=== PATIENT | male | born 1965 | race American Indian/Alaskan Native ===

== ENCOUNTER 2020-01-16 21:23 | Emergency (ER) | payer SELFPAY ==
[2020-01-16 21:31] VITALS: BP 145/92
[2020-01-16 22:06] LABS: Bilirubin,Urine NEG (Negative); Blood,Urine NEG (Negative); Color,Urine Amber (Yellow); Mucus,Urine FEW /HPF; Protein,Urine <15 mg/dL mg/dL (Negative)
[2020-01-16 23:22] LABS: BUN/Creatinine Ratio 7; Blood Urea Nitrogen 9 mg/dL (9-20); Calcium 9.2 mg/dL (8.4-10.2); Hemolysis Index 8
[2020-01-16 23:53] LABS: Basophils % (Auto) 0.2 % (0.0-1.8); Eosinophils % (Auto) 0.4 % (0.0-4.3); Hematocrit 41.5 % (35.5-45.6); Hemoglobin 14.3 gm/dl (11.8-15.2); Lymphocytes % (Auto) 19.6 % (13.4-35.0); Mean Corpuscular HGB Conc 35 % (32-34); Mean Corpuscular Volume 98 fl (84-94); Monocytes # (Auto) 1.2 K/mm3 (0.0-0.8); Monocytes % (Auto) 11.7 % (0.0-7.3); Platelet Count 170 K/mm3 (140-440); Red Blood Count 4.25 M/mm3 (3.65-5.03); Red Cell Distribution Width 13.2 % (13.2-15.2)
--- NOTE | 2020-01-17 01:43 | Emergency Department Report ---
ED Male [facility] - General Chief complaint: Fever Stated complaint: FEVER,CHILLS,FERNANDEZ IN URINE Source: patient Mode of arrival: Ambulatory Limitations: No Limitations - History of Present Illness Initial comments: 55-year-old -Russian male presents to the emergency room for dysuria x24 hours. Patient reports he has a history of HIV. Patient does not endorse that he has men on men sex. Patient admits to chills and feeling hot. Patient denies any abdominal pain no nausea no vomiting no testicular pain. MD Complaint: dysuria - Related Data Previous Rx's Medication Instructions Recorded Last Taken Type Ciprofloxacin HCl [Ciprofloxacin 500 mg PO Q12HR 7 Days #14 tab 01/17/20 Unknown Rx TAB] Phenazopyridine [Pyridium] 100 mg PO TID #9 tab 01/17/20 Unknown Rx Allergies Allergy/AdvReac Type Severity Reaction Status Date / Time No Known Allergies Allergy Unverified 01/16/20 21:42 ED Review of Systems ROS: Stated complaint: FEVER,CHILLS,FERNANDEZ IN URINE Other details as noted in HPI ED Past Medical Hx - Past Medical History Previous Medical History?: Yes Hx Hypertension: Yes Hx HIV: Yes - Surgical History Past Surgical History?: No - Social History Smoking Status: Never Smoker Substance Use Type: None - Medications Home Medications: Home Medications Medication Instructions Recorded Confirmed Last Taken Type Ciprofloxacin HCl [Ciprofloxacin 500 mg PO Q12HR 7 Days #14 tab 01/17/20 Unknown Rx TAB] Phenazopyridine [Pyridium] 100 mg PO TID #9 tab 01/17/20 Unknown Rx ED Physical Exam - General Limitations: No Limitations General appearance: alert, in no apparent distress - Head Head exam: Present: atraumatic, normocephalic - Eye Eye exam: Present: normal appearance - ENT ENT exam: Present: mucous membranes moist - Extremities Exam Extremities exam: Present: normal inspection, full ROM - Back Exam Back exam: Present: normal inspection - Neurological Exam Neurological exam: Present: alert, oriented X3, normal gait - Psychiatric Psychiatric exam: Present: normal affect, normal mood - Skin Skin exam: Present: warm, dry, intact, normal color. Absent: rash ED Course Vital Signs 01/16/20 21:30 Temperature 99.0 F Pulse Rate 121 H Respiratory 18 Rate Blood Pressure 145/92 O2 Sat by Pulse 95 Oximetry ED Medical Decision Making - Lab Data Result diagrams: 01/16/20 22:44 07/18/20 22:44 - Medical Decision Making 55-year-old -Russian male presents to the emergency room for dysuria x24 hours. Patient reports he has a history of HIV. Patient does not endorse that he has men on men sex. Patient admits to chills and feeling hot. Patient denies any abdominal pain no nausea no vomiting no testicular pain. Discharge on Cipro and Pyridium. Increase fluid intake follow-up with your primary care provider. Critical care attestation.: If time is entered above; I have spent that time in minutes in the direct care of this critically ill patient, excluding procedure time. ED Disposition Clinical Impression: UTI (urinary tract infection) Disposition: - TO HOME OR SELFCARE Is pt being admited?: No Does the pt Need Aspirin: No Condition: Stable Instructions: Urinary Tract Infection in Men (ED) Additional Instructions: Complete antibiotics as prescribed. Take Pyridium as needed for urinary spasms. Increase your water intake. Follow-up with your primary care provider if symptoms persist or gets worse. Prescriptions: Ciprofloxacin HCl [Ciprofloxacin TAB] 500 mg PO Q12HR 7 Days #14 tab Phenazopyridine [Pyridium] 100 mg PO TID #9 tab Referrals: RAJESH HOFFMAN MD [Primary Care Provider] - 3-5 Days PAMELA CANDELARIA MD [Staff Physician] - 3-5 Days
== END 2020-01-17 01:50 | disposition home or self-care (01) ==
LOC: ED 21:23
DX: N39.0 Urinary tract infection, site not specified (principal); I10 Essential (primary) hypertension; Z79.899 Other long term (current) drug therapy
CPT/HCPCS: 36415; 80048; 81001; 85025; 87086; 99283

== ENCOUNTER 2020-11-12 13:04 | Observation (INO) | payer BC ==
--- NOTE | 2020-11-12 13:55 | Event Note ---
ED Screening Note ED Screening Note: left lower lip numbness and left tongue numbness that began yesterday at 10 AM left fingers numbness/tingling states that he felt off balance, felt like he couldnt get balance states he felt dizziness like room was spinning no fever, no vomiting, diarrhea no vision changes no CP or SOB no headache has not had COVID vaccine no speech disturbance pmhx HTN no allergies to meds never smoker occ ETOH -twice a month This initial assessment/diagnostic orders/clinical plan/treatment(s) is/are subject to change based on patients health status, clinical progression and re- assessment by fellow clinical providers in the ED. Further treatment and workup at subsequent clinical providers discretion. Patient/guardian urged not to elope from the ED as their condition may be serious if not clinically assessed and managed. Initial orders include: labs, EKG, CT head
[2020-11-12 14:40] LABS: Basophils % (Auto) 0.6 % (0.0-1.8); Eosinophils # (Auto) 0.1 K/mm3 (0.0-0.4); Eosinophils % (Auto) 2.2 % (0.0-4.3); Hematocrit 41.3 % (35.5-45.6); Hemoglobin 14.4 gm/dl (11.8-15.2); Lymphocytes # (Auto) 2.3 K/mm3 (1.2-5.4); Lymphocytes % (Auto) 44.9 % (13.4-35.0); Mean Corpuscular HGB Conc 35 % (32-34); Mean Corpuscular Volume 97 fl (84-94); Monocytes # (Auto) 0.4 K/mm3 (0.0-0.8); Monocytes % (Auto) 8.8 % (0.0-7.3); Platelet Count 159 K/mm3 (140-440); Red Blood Count 4.24 M/mm3 (3.65-5.03); Red Cell Distribution Width 12.6 % (13.2-15.2)
[2020-11-12 14:47] LABS: INR 1.08 (0.87-1.13)
[2020-11-12 14:48] LABS: Partial Thromboplastin Time 29.3 Sec. (24.2-36.6)
[2020-11-12 14:59] LABS: Alanine Aminotransferase 27 units/L (7-56); BUN/Creatinine Ratio 10; Blood Urea Nitrogen 12 mg/dL (9-20); Hemolysis Index 8
--- NOTE | 2020-11-12 15:24 | Cat Scan Report ---
CT BRAIN: 11/12/2020 INDICATION / CLINICAL INFORMATION: dizziness, left lower lip, left fingers numbness. COMPARISON: None available. FINDINGS: BRAIN/INTRACRANIAL STRUCTURES: Unenhanced CT images of the brain demonstrate no evidence of acute int racranial abnormality. Ventricles and sulci are normal in size and shape. There is no evidence of acute large vessel territory ischemic injury. There is a 3 mm area of slightly increased density present in the region of the right globus pallidus (axial image 14). This is most likely a small focus of dystrophic basal ganglia calcification, altho ugh a small amount of blood product cannot be fully excluded without follow-up or comparison with chelsey or study. There are no abnormal extra-axial fluid collection. EXTRACRANIAL STRUCTURES: Unremarkable. IMPRESSION: No definite evidence of acute abnormality. 3 mm hyperdensity in right basal ganglia as described abo ve. All CT scans at this location are performed using dose reduction to ALARA by means of automated expos ure control. Signer Name: Matt Peralta MD Signed: 11/12/2020 3:20 PM Workstation Name: [email or web address]
[2020-11-12] MEDS ORDERED: ONDANSETRON 4 MG/2 ML INJ IV PRN (16:32)
[2020-11-12] MEDS ORDERED: MAGNESIUM HYDROXIDE (MOM) ORAL LIQD UDC PO PRN (16:32)
[2020-11-12] MEDS ORDERED: PROMETHAZINE 25 MG RECT SUPP PR PRN (16:32)
[2020-11-12] MEDS ORDERED: METOCLOPRAMIDE 10 MG TAB PO PRN (16:32)
[2020-11-12] MEDS ORDERED: ACETAMINOPHEN 325 MG TAB PO PRN (16:32)
--- NOTE | 2020-11-12 16:34 | History and Physical Report ---
History of Present Illness Chief complaint: My face started feeling and I could not walk History of present illness: 55 YO Male with HTN, Diet controlled DM, HIV with undetectable viral load presents to ED for evaluation. Pt reports "My face felt numb,and I could not walk". Pt states that he experienced sudden onset left face and left leg numbness and weakness yesterday while at work. Patient knowledges difficulty w ith ambulation. Patient states this upon awakening from sleep this morning he experienced persistent symptoms. Patient transported to [facility] via private vehicle for further care and evaluation of the aforementioned symptoms. The patient was seen and evaluated in the emergency department. All lab and imaging studies reviewed. The patient was found to have a neurologic deficit as well as clinical symptoms consistent with CVA. The patient was placed in observation status and admitted to medical floor and initiated on CVA protocol. The patient was deemed not a candidate for TPA. Patient denies fever, chills, chest pain, palpitation, productive cough, skin rash, recent ill contacts, or known exposure to COVID-19. No prior admission for review. All medication listed at time of admission has been reconciled. Past History Past Medical History: HIV/AIDS, hypertension Past Surgical History: hernia repair Social history: single. denies: smoking, alcohol abuse, prescription drug abuse Family history: hypertension Medications and Allergies Allergies Allergy/AdvReac Type Severity Reaction Status Date / Time No Known Allergies Allergy Unverified 01/16/20 21:42 Home Medications Medication Instructions Recorded Confirmed Last Taken Type Ciprofloxacin HCl [Ciprofloxacin 500 mg PO Q12HR 7 Days #14 tab 01/17/20 Unknown Rx TAB] Phenazopyridine [Pyridium] 100 mg PO TID #9 tab 01/17/20 Unknown Rx Active Meds: Active Medications Acetaminophen (Acetaminophen 325 Mg Tab) 650 mg PO Q4H PRN PRN Reason: Pain, Mild (1-3) Bisacodyl (Bisacodyl 10 Mg Rect Supp) 10 mg AL QDAY PRN PRN Reason: Constipation Magnesium Hydroxide (Magnesium Hydroxide (Mom) Oral Liqd Udc) 30 ml PO Q4H PRN PRN Reason: Constipation Metoclopramide HCl (Metoclopramide 10 Mg Tab) 10 mg PO Q6H PRN PRN Reason: Nausea And Vomiting Promethazine HCl (Promethazine 25 Mg Rect Supp) 25 mg AL Q6H PRN PRN Reason: Nausea And Vomiting Sodium Chloride (Sodium Chloride 0.9% 10 Ml Flush Syringe) 10 ml INJ PRN PRN PRN Reason: LINE FLUSH Review of Systems Constitutional: no weight loss, no weight gain, no fever, no chills, no sweats Ears, nose, mouth and throat: no ear pain, no ear discharge, no decreased hearing, no nose pain, no nasal discharge Cardiovascular: no chest pain, no orthopnea, no palpitations Respiratory: no cough, no cough with sputum, no dyspnea on exertion Gastrointestinal: no abdominal pain, no nausea, no vomiting, no diarrhea, no constipation, no hematemesis Genitourinary Male: no hematuria, no flank pain, no discharge, no urinary frequency, no urinary hesitancy, no nocturia Rectal: no pain, no incontinence, no bleeding Musculoskeletal: no shooting arm pain, no low back pain, no shooting leg pain, no redness of joints Integumentary: no rash, no pruritis, no sores, no wounds, no boils Neurological: no head injury, no transient paralysis, no weakness, no parathesias, no tingling, no seizures, no tremors, no ataxia Psychiatric: no anxiety, no change in sleep habits, no insomnia, no hypersomnia, no suicidal ideation, no disorientation, no hallucinations Endocrine: no cold intolerance, no heat intolerance, no polydipsia, no polyuria Hematologic/Lymphatic: no easy bruising, no easy bleeding Allergic/Immunologic: no allergic rhinitis Exam - Constitutional Vitals: Temp Pulse Resp BP Pulse Ox 98.3 F 65 20 131/87 97 11/12/20 13:13 11/12/20 16:26 11/12/20 16:26 11/12/20 16:26 11/12/20 16:26 General appearance: Present: no acute distress, well-nourished - EENT Eyes: Present: PERRL ENT: hearing intact, clear oral mucosa - Neck Neck: Present: supple, normal ROM - Respiratory Respiratory effort: normal Respiratory: bilateral: CTA - Cardiovascular Heart Sounds: Present: S1 & S2. Absent: rub, click - Extremities Extremities: pulses symmetrical, No edema Peripheral Pulses: within normal limits - Abdominal General gastrointestinal: Present: soft, non-tender, non-distended, normal bowel sounds Male genitourinary: Present: normal - Integumentary Integumentary: Present: clear, warm, dry - Musculoskeletal Musculoskeletal: gait normal, strength equal bilaterally - Psychiatric Psychiatric: appropriate mood/affect, intact judgment & insight - Neurologic Neurologic: CNII-XII intact, moves all extremities HEART Score - HEART Score Troponin: Troponin T < 0.010 ng/mL (0.00-0.029) 11/12/20 14:16 Results - Labs CBC & Chem 7: 11/12/20 14:16 11/12/20 14:16 Labs: Abnormal lab results 11/12/20 11/12/20 Range/Units 14:16 14:16 MCV 97 H (84-94) fl MCH 34 H (28-32) pg MCHC 35 H (32-34) % RDW 12.6 L (13.2-15.2) % Lymph % (Auto) 44.9 H (13.4-35.0) % [place] % (Auto) 8.8 H (0.0-7.3) % Sodium 136 L (137-145) mmol/L Total Creatine Kinase 260 H (55-170) units/L Assessment and Plan - Patient Problems (1) CVA (cerebral vascular accident) Current Visit: Yes Status: Acute Plan to address problem: CVA protocol: CT head, neuro check, seizure caution, aspiration precautions, antiplatelet therapy, echocardiogram, carotid Doppler, physical therapy consulted, Occupational Therapy consulted, speech therapy consulted. (2) HIV (human immunodeficiency virus infection) Current Visit: Yes Status: Acute Qualifiers: HIV symptom status: currently asymptomatic, with history of HIV-related illness Qualified Code(s): B20 - Human immunodeficiency virus [HIV] disease Plan to address problem: Outpatient infectious disease service follow-up. (3) Hypertension Current Visit: Yes Status: Acute Qualifiers: Hypertension type: essential hypertension Qualified Code(s): I10 - Essential (primary) hypertension Plan to address problem: Monitor blood pressure every shift, permissive hypertension overnight. (4) DVT prophylaxis Current Visit: Yes Status: Acute Plan to address problem: SCD to bilateral lower extremities while in bed, patient is ambulatory.
--- NOTE | 2020-11-12 16:40 | Emergency Department Report ---
ED Neuro Deficit HPI - General Chief Complaint: Neuro Symptoms/Deficit Stated Complaint: POSS STROKE Time Seen by Provider: 11/12/20 13:52 Source: patient Mode of arrival: Ambulatory Limitations: No Limitations - History of Present Illness Initial Comments: CC: Face numbness and numbness difficulty walking HPI: This is a 55-year-old male with history of hypertension, prediabetes, HIV with undetectable viral load on ART who presents with left lower leg tingling, left finger tingling, difficulty walking. For several moments on yesterday felt as if he could not get his balance. He also had commented left lower lobe numbness tingling. He took Leyda aspirin last night. He also took aspirin this morning. He was concerned about stroke. He went to a retail pharmacy to check his blood pressure. Blood pressure was 18/20 at that time. He has been compliant with his blood pressure medication. He takes losartan daily. His only other medication is Triumeq. -: Sudden, days(s) (Yesterday morning while at work 10 AM) Location: left face, left arm, other (Difficulty walking, loss of balance) History of same: No Place: work Severity: mild Improves With: time Worsens With: none On Anticoagulants: No Context: sudden onset Associated Symptoms: other (Difficulty walking, numbness in the face or hand) - Related Data Home Medications: Previous Rx's Medication Instructions Recorded Last Taken Type Ciprofloxacin HCl [Ciprofloxacin 500 mg PO Q12HR 7 Days #14 tab 01/17/20 Unknown Rx TAB] Phenazopyridine [Pyridium] 100 mg PO TID #9 tab 01/17/20 Unknown Rx Allergies/Adverse Reactions: Allergies Allergy/AdvReac Type Severity Reaction Status Date / Time No Known Allergies Allergy Unverified 01/16/20 21:42 ED Review of Systems ROS: Stated complaint: POSS STROKE Other details as noted in HPI Comment: All other systems reviewed and negative Constitutional: denies: fever, malaise Respiratory: denies: cough, shortness of breath Gastrointestinal: denies: abdominal pain, nausea, vomiting Neurological: numbness, paresthesias, abnormal gait ED Past Medical Hx - Past Medical History Previous Medical History?: Yes Hx Hypertension: Yes Hx HIV: Yes - Surgical History Past Surgical History?: Yes Additional Surgical History: hernia - Social History Smoking Status: Never Smoker Substance Use Type: Alcohol - Medications Home Medications: Home Medications Medication Instructions Recorded Confirmed Last Taken Type Ciprofloxacin HCl [Ciprofloxacin 500 mg PO Q12HR 7 Days #14 tab 01/17/20 Unknown Rx TAB] Phenazopyridine [Pyridium] 100 mg PO TID #9 tab 01/17/20 Unknown Rx ED Neuro Physical Exam - General Limitations: No Limitations General appearance: alert, in no apparent distress Suspected Stroke: Yes - Head Head exam: Present: atraumatic, normocephalic - Eye Eye exam: Present: normal appearance - ENT ENT exam: Present: mucous membranes moist - Neck Neck exam: Present: normal inspection, full ROM - Respiratory Respiratory exam: Present: normal lung sounds bilaterally. Absent: respiratory distress - Cardiovascular Cardiovascular Exam: Present: regular rate, normal rhythm. Absent: systolic murmur, diastolic murmur, rubs, gallop - GI/Abdominal GI/Abdominal exam: Present: soft, normal bowel sounds. Absent: distended, tenderness, guarding, rebound - Rectal Rectal exam: Present: deferred - Extremities Exam Extremities exam: Present: normal inspection - Neurological Exam Neurological exam: Present: alert, oriented X3 - NIHSS Assessment Interval: Baseline 1a. Level of Consciousness: alert/keenly responsive 1b. LOC Questions: answers both correctly 1c. LOC Commands: performs tasks correctly 2. Best Gaze: normal 3. Visual: no visual loss 4. Facial Palsy: normal symmetrical movement 5b. Motor Arm Right: no drift 5a. Motor Arm Left: no drift 6a. Motor Leg Left: no drift 6b. Motor Leg Right: no drift 7. Limb Ataxia: absent 8. Sensory: normal 9. Best Language: no aphasia 10. Dysarthria: normal 11. Extinction/Inattention: no abnormality Total Score: 0 Stroke Severity: No Stroke Symptoms - Psychiatric Psychiatric exam: Present: normal affect, normal mood - Skin Skin exam: Present: warm, dry, intact, normal color. Absent: rash ED Course Vital Signs 11/12/20 11/12/20 13:13 16:26 Temperature 98.3 F Pulse Rate 83 65 Respiratory 18 20 Rate Blood Pressure 140/80 Blood Pressure 131/87 [Left] O2 Sat by Pulse 97 97 Oximetry - Lab Data Result diagrams: 11/12/20 14:16 11/12/20 14:16 Lab Results 11/12/20 11/12/20 11/12/20 Range/Units 14:16 14:16 14:16 WBC 5.0 (4.5-11.0) K/mm3 RBC 4.24 (3.65-5.03) M/mm3 Hgb 14.4 (11.8-15.2) gm/dl Hct 41.3 (35.5-45.6) % MCV 97 H (84-94) fl MCH 34 H (28-32) pg MCHC 35 H (32-34) % RDW 12.6 L (13.2-15.2) % Plt Count 159 (140-440) K/mm3 Lymph % (Auto) 44.9 H (13.4-35.0) % [place] % (Auto) 8.8 H (0.0-7.3) % Eos % (Auto) 2.2 (0.0-4.3) % Baso % (Auto) 0.6 (0.0-1.8) % Lymph # (Auto) 2.3 (1.2-5.4) K/mm3 [place] # (Auto) 0.4 (0.0-0.8) K/mm3 Eos # (Auto) 0.1 (0.0-0.4) K/mm3 Baso # (Auto) 0.0 (0.0-0.1) K/mm3 Seg Neutrophils % 43.5 (40.0-70.0) % Seg Neutrophils # 2.2 (1.8-7.7) K/mm3 PT 13.9 (12.2-14.9) Sec. INR 1.08 (0.87-1.13) APTT 29.3 (24.2-36.6) Sec. Sodium 136 L (137-145) mmol/L Potassium 3.7 (3.6-5.0) mmol/L Chloride 100.5 (98-107) mmol/L Carbon Dioxide 29 (22-30) mmol/L Anion Gap 10 mmol/L BUN 12 (9-20) mg/dL Creatinine 1.2 (0.8-1.3) mg/dL Estimated GFR > 60 ml/min BUN/Creatinine Ratio 10 % Glucose 92 (75-100) mg/dL Calcium 9.0 (8.4-10.2) mg/dL Magnesium 1.90 (1.7-2.3) mg/dL Total Bilirubin 0.40 (0.1-1.2) mg/dL AST 20 (5-40) units/L ALT 27 (7-56) units/L Alkaline Phosphatase 50 (35-129) units/L Total Creatine Kinase 260 H (55-170) units/L Troponin T (0.00-0.029) ng/mL Total Protein 7.6 (6.3-8.2) g/dL Albumin 4.0 (3.9-5) g/dL Albumin/Globulin Ratio 1.1 % TSH (0.270-4.200) mlU/mL 11/12/20 11/12/20 Range/Units 14:16 14:16 WBC (4.5-11.0) K/mm3 RBC (3.65-5.03) M/mm3 Hgb (11.8-15.2) gm/dl Hct (35.5-45.6) % MCV (84-94) fl MCH (28-32) pg MCHC (32-34) % RDW (13.2-15.2) % Plt Count (140-440) K/mm3 Lymph % (Auto) (13.4-35.0) % [place] % (Auto) (0.0-7.3) % Eos % (Auto) (0.0-4.3) % Baso % (Auto) (0.0-1.8) % Lymph # (Auto) (1.2-5.4) K/mm3 [place] # (Auto) (0.0-0.8) K/mm3 Eos # (Auto) (0.0-0.4) K/mm3 Baso # (Auto) (0.0-0.1) K/mm3 Seg Neutrophils % (40.0-70.0) % Seg Neutrophils # (1.8-7.7) K/mm3 PT (12.2-14.9) Sec. INR (0.87-1.13) APTT (24.2-36.6) Sec. Sodium (137-145) mmol/L Potassium (3.6-5.0) mmol/L Chloride (98-107) mmol/L Carbon Dioxide (22-30) mmol/L Anion Gap mmol/L BUN (9-20) mg/dL Creatinine (0.8-1.3) mg/dL Estimated GFR ml/min BUN/Creatinine Ratio % Glucose (75-100) mg/dL Calcium (8.4-10.2) mg/dL Magnesium (1.7-2.3) mg/dL Total Bilirubin (0.1-1.2) mg/dL AST (5-40) units/L ALT (7-56) units/L Alkaline Phosphatase (35-129) units/L Total Creatine Kinase (55-170) units/L Troponin T < 0.010 (0.00-0.029) ng/mL Total Protein (6.3-8.2) g/dL Albumin (3.9-5) g/dL Albumin/Globulin Ratio % TSH 0.893 (0.270-4.200) mlU/mL - EKG Data EKG shows normal: sinus rhythm, axis, ST-T waves Rate: normal 11/12/20 16:37 EKG obtained 1405 EKG interpreted by me Normal sinus rhythm normal axis right bundle branch block no ST elevation nonspecific T wave pattern - Radiology Data Radiology results: report reviewed Patient Name: SARAHI HSIEH Gender: Male Date of : 1965 Referring Provider: ALBA NOYOLA Organization: [facility] Accession Number: [id number] Requested Date: November 12, 2020 13:55 Report Status: Final Requested Procedure: 1 Procedure Description: CT head/brain wo con Modality: CT Findings Reporting MD: Matt Peralta Dictation Time: November 12, 2020 14:20 Exhibitions Curator: Not available Practice Clinician Date: CT BRAIN: 11/12/2020 INDICATION / CLINICAL INFORMATION: dizziness, left lower lip, left fingers numbness. COMPARISON: None available. FINDINGS: BRAIN/INTRACRANIAL STRUCTURES: Unenhanced CT images of the brain demonstrate no evidence of acute intracranial abnormality. Ventricles and sulci are normal in size and shape. There is no evidence of acute large vessel territory ischemic injury. There is a 3 mm area of slightly increased density present in the region of the right globus pallidus (axial image 14). This is most likely a small focus of dystrophic basal ganglia calcification, although a small amount of blood product cannot be fully excluded without follow-up or comparison with prior study. There are no abnormal extra-axial fluid collection. EXTRACRANIAL STRUCTURES: Unremarkable. IMPRESSION: No definite evidence of acute abnormality. 3 mm hyperdensity in right basal ganglia as described above. All CT scans at this location are performed using dose reduction to ALARA by means of automated exposure control. Signer Name: Matt Peralta MD Signed: 11/12/2020 2:20 PM Workstation Name: [id number] - Medical Decision Making TIA: Patient does not have any residual symptoms at this time. Patient took aspirin prior to arrival. Time of onset of symptoms 10 AM on yesterday. Patient admitted to the hospital service. CBC chemistry within normal limits. PT PTT within normal. CT head without contrast revealed no acute abnormality likely basal ganglia calcification. Critical care attestation.: If time is entered above; I have spent that time in minutes in the direct care of this critically ill patient, excluding procedure time. ED Disposition Clinical Impression: TIA (transient ischemic attack) Disposition: OP ADMIT IP TO THIS HOSP Is pt being admited?: Yes Does the pt Need Aspirin: No Condition: Stable
--- NOTE | 2020-11-13 07:54 | Progress Note ---
Assessment and Plan Assessment and plan: CVA. HIV Hypertension 11/13/2020. CT scan of head is negative. Follow-up MRI brain, echocardiogram a nd carotid ultrasound. PT/OT. Neurology consultation in a.m. Continue aspirin and Lipitor. Hold home medication of losartan to allow for permissive hypertension. Patient reports that he believes he is on 100 mg at home History Interval history: No new issues overnight. Hospitalist Physical - Constitutional Vitals: Temp Pulse Resp BP Pulse Ox 97.7 F 72 18 130/79 96 11/12/20 22:30 11/12/20 22:30 11/12/20 22:30 11/12/20 22:30 11/12/20 22:30 General appearance: Present: no acute distress, well-nourished - EENT Eyes: Present: PERRL, EOM intact ENT: hearing intact, clear oral mucosa, dentition normal - Neck Neck: Present: supple, normal ROM - Respiratory Respiratory effort: normal Respiratory: bilateral: CTA - Cardiovascular Rhythm: regular Heart Sounds: Present: S1 & S2. Absent: gallop, rub - Extremities Extremities: no ischemia, No edema, Full ROM - Abdominal General gastrointestinal: soft, non-tender, non-distended, normal bowel sounds - Integumentary Integumentary: Present: clear, warm, dry - Neurologic Neurologic: CNII-XII intact, moves all extremities HEART Score - HEART Score Troponin: Troponin T < 0.010 ng/mL (0.00-0.029) 11/12/20 14:16 Results - Labs CBC & Chem 7: 11/12/20 14:16 11/12/20 14:16 Labs: Laboratory Last Values WBC 5.0 K/mm3 (4.5-11.0) 11/12/20 14:16 RBC 4.24 M/mm3 (3.65-5.03) 11/12/20 14:16 Hgb 14.4 gm/dl (11.8-15.2) 11/12/20 14:16 Hct 41.3 % (35.5-45.6) 11/12/20 14:16 MCV 97 fl (84-94) H 11/12/20 14:16 MCH 34 pg (28-32) H 11/12/20 14:16 MCHC 35 % (32-34) H 11/12/20 14:16 RDW 12.6 % (13.2-15.2) L 11/12/20 14:16 Plt Count 159 K/mm3 (140-440) 11/12/20 14:16 Lymph % (Auto) 44.9 % (13.4-35.0) H 11/12/20 14:16 [place] % (Auto) 8.8 % (0.0-7.3) H 11/12/20 14:16 Eos % (Auto) 2.2 % (0.0-4.3) 11/12/20 14:16 Baso % (Auto) 0.6 % (0.0-1.8) 11/12/20 14:16 Lymph # (Auto) 2.3 K/mm3 (1.2-5.4) 11/12/20 14:16 [facility] [place] # (Auto) 0.4 K/mm3 (0.0-0.8) 11/12/20 14:16 Eos # (Auto) 0.1 K/mm3 (0.0-0.4) 11/12/20 14:16 Baso # (Auto) 0.0 K/mm3 (0.0-0.1) 11/12/20 14:16 Seg Neutrophils % 43.5 % (40.0-70.0) 11/12/20 14:16 Seg Neutrophils # 2.2 K/mm3 (1.8-7.7) 11/12/20 14:16 PT 13.9 Sec. (12.2-14.9) 11/12/20 14:16 INR 1.08 (0.87-1.13) 11/12/20 14:16 APTT 29.3 Sec. (24.2-36.6) 11/12/20 14:16 Sodium 136 mmol/L (137-145) L 11/12/20 14:16 Potassium 3.7 mmol/L (3.6-5.0) 11/12/20 14:16 Chloride 100.5 mmol/L (98-107) 11/12/20 14:16 Carbon Dioxide 29 mmol/L (22-30) 11/12/20 14:16 Anion Gap 10 mmol/L 11/12/20 14:16 BUN 12 mg/dL (9-20) 11/12/20 14:16 Creatinine 1.2 mg/dL (0.8-1.3) 11/12/20 14:16 Estimated GFR > 60 ml/min 11/12/20 14:16 BUN/Creatinine Ratio 10 % 11/12/20 14:16 Glucose 92 mg/dL (75-100) 11/12/20 14:16 Calcium 9.0 mg/dL (8.4-10.2) 11/12/20 14:16 Magnesium 1.90 mg/dL (1.7-2.3) 11/12/20 14:16 Total Bilirubin 0.40 mg/dL (0.1-1.2) 11/12/20 14:16 AST 20 units/L (5-40) 11/12/20 14:16 ALT 27 units/L (7-56) 11/12/20 14:16 Alkaline Phosphatase 50 units/L (35-129) 11/12/20 14:16 Total Creatine Kinase 260 units/L (55-170) H 11/12/20 14:16 Troponin T < 0.010 ng/mL (0.00-0.029) 11/12/20 14:16 Total Protein 7.6 g/dL (6.3-8.2) 11/12/20 14:16 Albumin 4.0 g/dL (3.9-5) 11/12/20 14:16 Albumin/Globulin Ratio 1.1 % 11/12/20 14:16 TSH 0.893 mlU/mL (0.270-4.200) 11/12/20 14:16 Laguerre/IV: Voiding Method Toilet Active Medications - Current Medications Current Medications: Generic Name Dose Route Start Last Admin Trade Name Freq PRN Reason Stop Dose Admin Acetaminophen 650 mg 11/12/20 16:32 Acetaminophen 325 Mg Tab PO Q4H PRN Pain, Mild (1-3) Aspirin 325 mg 11/13/20 10:00 Aspirin 325 Mg Tab PO QDAY ALFREDO Atorvastatin Calcium 40 mg 11/12/20 22:00 11/12/20 22:17 Atorvastatin 40 Mg Tab PO 40 mg QHS ALFREDO Administration Bisacodyl 10 mg 11/12/20 16:32 Bisacodyl 10 Mg Rect Supp [place] QDAY PRN Constipation Magnesium Hydroxide 30 ml 11/12/20 16:32 Magnesium Hydroxide (Mom) Oral Liqd Udc PO Q4H PRN Constipation Metoclopramide HCl 10 mg 11/12/20 16:32 Metoclopramide 10 Mg Tab PO Q6H PRN Nausea And Vomiting Ondansetron HCl 4 mg 11/12/20 16:32 Ondansetron 4 Mg/2 Ml Inj IV Q8H PRN Nausea And Vomiting Promethazine HCl 25 mg 11/12/20 16:32 Promethazine 25 Mg Rect Supp [place] Q6H PRN Nausea And Vomiting Sodium Chloride 10 ml 11/12/20 16:32 Sodium Chloride 0.9% 10 Ml Flush Syringe IV PRN PRN LINE FLUSH
[2020-11-13 08:17] LABS: Chol/HDL Ratio 4.87 %
--- NOTE | 2020-11-13 08:35 | Consultation ---
History of Present Illness Consult date: 11/13/20 Reason for Consult: left face and arm numbness with unsteadiness History of present illness: My face started feeling and I could not walk History of present illness: 55 YO Male with HTN, Diet controlled DM, HIV with undetectable viral load presents to ED for evaluation. Pt reports "My face felt numb,and I could not wa lk". Pt states that he experienced sudden onset left face and left leg numbness and weakness yesterday while at work. Patient knowledges difficulty with ambulation. Patient states this upon awakening from sleep this morning he experienced persistent symptoms. Patient transported to [facility] via private vehicle for further care and evaluation of the aforementioned symptoms. The patient was seen and evaluated in the emergency department. All lab and imaging studies reviewed. The patient was found to have a neurologic deficit as well as clinical symptoms consistent with CVA. The patient was placed in observation status and admitted to medical floor and initiated on CVA protocol. The patient was deemed not a candidate for TPA. Patient denies fever, chills, chest pain, palpitation, productive cough, skin rash, recent ill contacts, or known exposure to COVID-19. No prior admission for review. All medication listed at time of admission has been reconciled. Past History Past Medical History: HIV/AIDS, hypertension Past Surgical History: hernia repair Social history: single. denies: smoking, alcohol abuse, prescription drug abuse Family history: hypertension Medications and Allergies Allergies Allergy/AdvReac Type Severity Reaction Status Date / Time No Known Allergies Allergy Unverified 01/16/20 21:42 Home Medications Medication Instructions Recorded Confirmed Last Taken Type Ciprofloxacin HCl [Ciprofloxacin 500 mg PO Q12HR 7 Days #14 tab 01/17/20 Unknown Rx TAB] Phenazopyridine [Pyridium] 100 mg PO TID #9 tab 01/17/20 Unknown Rx Active Meds: Active Medications Acetaminophen (Acetaminophen 325 Mg Tab) 650 mg PO Q4H PRN PRN Reason: Pain, Mild (1-3) Bisacodyl (Bisacodyl 10 Mg Rect Supp) 10 mg [place] QDAY PRN PRN Reason: Constipation Magnesium Hydroxide (Magnesium Hydroxide (Mom) Oral Liqd Udc) 30 ml PO Q4H PRN PRN Reason: Constipation Metoclopramide HCl (Metoclopramide 10 Mg Tab) 10 mg PO Q6H PRN PRN Reason: Nausea And Vomiting Promethazine HCl (Promethazine 25 Mg Rect Supp) 25 mg VA Q6H PRN PRN Reason: Nausea And Vomiting Sodium Chloride (Sodium Chloride 0.9% 10 Ml Flush Syringe) 10 ml INJ PRN PRN PRN Reason: LINE FLUSH Review of Systems Constitutional: no weight loss, no weight gain, no fever, no chills, no sweats Ears, nose, mouth and throat: no ear pain, no ear discharge, no decreased hearing, no nose pain, no nasal discharge Cardiovascular: no chest pain, no orthopnea, no palpitations Respiratory: no cough, no cough with sputum, no dyspnea on exertion Gastrointestinal: no abdominal pain, no nausea, no vomiting, no diarrhea, no constipation, no hematemesis Genitourinary Male: no hematuria, no flank pain, no discharge, no urinary frequency, no urinary hesitancy, no nocturia Rectal: no pain, no incontinence, no bleeding Musculoskeletal: no shooting arm pain, no low back pain, no shooting leg pain, no redness of joints Integumentary: no rash, no pruritis, no sores, no wounds, no boils Neurological: no head injury, no transient paralysis, no weakness, no parathesias, no tingling, no seizures, no tremors, no ataxia Psychiatric: no anxiety, no change in sleep habits, no insomnia, no hypersomnia, no suicidal ideation, no disorientation, no hallucinations Endocrine: no cold intolerance, no heat intolerance, no polydipsia, no polyuria Hematologic/Lymphatic: no easy bruising, no easy bleeding Allergic/Immunologic: no allergic rhinitis Past History Past Medical History: HIV/AIDS, hypertension Past Surgical History: hernia repair Social history: single. denies: smoking, alcohol abuse, prescription drug abuse Family history: hypertension Medications and Allergies Allergies Allergy/AdvReac Type Severity Reaction Status Date / Time No Known Allergies Allergy Unverified 01/16/20 21:42 Home Medications Medication Instructions Recorded Confirmed Last Taken Type Ciprofloxacin HCl [Ciprofloxacin 500 mg PO Q12HR 7 Days #14 tab 01/17/20 Unknown Rx TAB] Phenazopyridine [Pyridium] 100 mg PO TID #9 tab 01/17/20 Unknown Rx Losartan/Hydrochlorothiazide 0 each PO 11/13/20 Unknown History [Losartan-Hctz 100-25 mg Tab] Active Meds: Active Medications Acetaminophen (Acetaminophen 325 Mg Tab) 650 mg PO Q4H PRN PRN Reason: Pain, Mild (1-3) Aspirin (Aspirin 325 Mg Tab) 325 mg PO QDAY [facility] Atorvastatin Calcium (Atorvastatin 40 Mg Tab) 40 mg PO QHS [facility] Last Admin: 11/12/20 22:17 Dose: 40 mg Documented by: Bisacodyl (Bisacodyl 10 Mg Rect Supp) 10 mg VA QDAY PRN PRN Reason: Constipation Magnesium Hydroxide (Magnesium Hydroxide (Mom) Oral Liqd Udc) 30 ml PO Q4H PRN PRN Reason: Constipation Metoclopramide HCl (Metoclopramide 10 Mg Tab) 10 mg PO Q6H PRN PRN Reason: Nausea And Vomiting Ondansetron HCl (Ondansetron 4 Mg/2 Ml Inj) 4 mg IV Q8H PRN PRN Reason: Nausea And Vomiting Promethazine HCl (Promethazine 25 Mg Rect Supp) 25 mg VA Q6H PRN PRN Reason: Nausea And Vomiting Sodium Chloride (Sodium Chloride 0.9% 10 Ml Flush Syringe) 10 ml IV PRN PRN PRN Reason: LINE FLUSH Physical Examination - Vital Signs Vital Signs: Vital Signs Temp Pulse Resp BP Pulse Ox 98.3 F 83 18 140/80 97 11/12/20 13:13 11/12/20 13:13 11/12/20 13:13 11/12/20 13:13 11/12/20 13:13 Results - Laboratory Findings CBC and BMP: 11/12/20 14:16 11/12/20 14:16 Abnormal Lab Findings: Abnormal Labs 11/12/20 11/12/20 11/13/20 14:16 14:16 07:21 MCV 97 H MCH 34 H MCHC 35 H RDW 12.6 L Lymph % (Auto) 44.9 H Morton % (Auto) 8.8 H Sodium 136 L Total Creatine Kinase 260 H HDL Cholesterol 33 L Assessment and Plan Assessment and Plan - Patient Problems #CVA Vs TIA -CVA protocol: -CT head is remarkable for R.BG calcificaion 3mm ? Bleed - neuro check, -seizure caution, -aspiration precautions, - antiplatelet therapy,ASA 325 mg - echocardiogram, -carotid Doppler, - physical therapy consulted, Occupational Therapy consulted, speech therapy consulted. -Brain MRI is pending ? with Gq due to Hx of HIV . -Consider CTA brain and neck !! # HLP --On lipitor -LDL#[id number] # Hypertension - Allow for permissive HTN<220 Systolic X 24 hours -Then BP normalize to <150/80 -Monitor blood pressure every shift, -Initial BP was 163/107 # HIV (human immunodeficiency virus infection) -Outpatient infectious disease service follow-up. # DVT prophylaxis -SCD to bilateral lower extremities while in bed, - patient is ambulatory. will follow
--- NOTE | 2020-11-13 12:36 | Vascular Lab Report ---
"DUPLEX DOPPLER ULTRASOUND CAROTID, BILATERAL INDICATION: stroke. FINDINGS: RIGHT CAROTID mild atherosclerotic plaque. Right CCA velocity: 126 cm/sec. Right ICA peak systolic velocity: 137 cm/sec. ICA/CCA PSV Ratio: 1.1. Right Vertebral Artery: Antegrade flow. LEFT CAROTID: Mild atherosclerotic plaque. Left CCA velocity: 103 cm/sec. Left ICA peak systolic velocity: 113 cm/sec. ICA/CCA PSV Ratio: 1.1. Left Vertebral Artery: Antegrade flow. IMPRESSION: 1. Right Internal Carotid Artery: Less than 50% diameter stenosis. 2. Left Internal Carotid Artery: Less than 50% diameter stenosis. Velocity criteria are extrapolated from diameter data as defined by the Society of Radiologists in Ul trasound Consensus Conference, Radiology 2003; 229;340-346. Degree of || ICA PSV || Plaque || ICA/CCA Stenosis (%) || (cm/sec) || estimate (%) || PSV Ratio - Normal...............<125..............None.................<2.0 - <50....................<125..............<50....................<2.0 - 50-69................125-230.........>50....................2.0-4.0 - >70 but <100....>230..............>50....................>4.0 - Near...................High, low, .....visible................variable occlusion or none - Total...................None.............visible;................N/A occlusion no lumen Signer Name: Ziggy Gillette MD Signed: 11/13/2020 12:32 PM Workstation Name: [id number]"
--- NOTE | 2020-11-13 20:02 | Cat Scan Report ---
CTA NECK WITH CONTRAST 11/13/2020 INDICATION / CLINICAL INFORMATION: cva. COMPARISON: None. TECHNIQUE: Routine CTA of the neck is performed. 3-D/MIP reformats were postprocessed. Percentage st enosis is determined by direct quantitative measurements of diseased internal carotid artery diameter compared with normal distal internal carotid artery reference segments or by criteria similar to CA CET where applicable. All CT scans at this location are performed using CT dose reduction for ALARA b y means of automated exposure control. CONTRAST: 100 ml of Isovue 370 FINDINGS: Carotid bifurcations: There is no evidence of carotid bifurcation stenosis. Carotid arteries: No significant abnormality. Cervical vertebral arteries: Vertebral arteries are relatively hypoplastic on a developmental basis. Aortic arch: No significant abnormality. None. IMPRESSION: No significant abnormality. Signer Name: Matt Peralta MD Signed: 11/13/2020 7:57 PM Workstation Name: [id number]
--- NOTE | 2020-11-13 20:03 | Cat Scan Report ---
CTA HEAD WITH CONTRAST 11/13/2020 HISTORY: CVA. COMPARISON: None. TECHNIQUE: All CT scans at this location are performed using CT dose reduction for ALARA by means of automated exposure control.. 3-D/MIP reformats postprocessed. Percentage stenosis is determined by d irect quantitative measurements of diseased internal carotid artery diameter compared with normal dis jose internal carotid artery reference segments or by criteria similar to NASCET where applicable. CONTRAST: 100 ml of Isovue 370 FINDINGS: CTA HEAD: Intracranial vertebral arteries: Vertebral artery is hypoplastic on a developmental basis. Basilar artery: Basilar artery is hypoplastic on a developmental basis. Posterior cerebral arteries: No significant abnormality. Prominent bilateral posterior to indicating arteries are present. Intracranial internal carotid arteries: No significant abnormality. Anterior cerebral arteries: No significant abnormality. Middle cerebral arteries: No significant abnormality. Dural venous sinuses:Not optimally opacified. No significant abnormality. Additional findings: None. IMPRESSION: 1. No significant abnormality. Signer Name: Matt Peralta MD Signed: 11/13/2020 7:59 PM Workstation Name: [id number]
[2020-11-13] MEDS: ASPIRIN 325 MG TAB PO SCH (21:44)
--- NOTE | 2020-11-14 07:52 | Progress Note ---
Assessment and Plan Assessment and plan: CVA. HIV Hypertension 11/13/2020. CT scan of head is negative. Follow-up MRI brain, echocardiogram a nd carotid ultrasound. PT/OT. Neurology consultation in a.m. Continue aspirin and Lipitor. Hold home medication of losartan to allow for permissive hypertension. Patient reports that he believes he is on 100 mg at home 11/14/2020. Follow-up MRI brain and echocardiogram. CTA of head and neck as well as carotid ultrasound are unremarkable. PT/OT. Neurology following. Patient is normotensive off blood pressure medications. Continue aspirin and Lipitor. History Interval history: No new issues overnight. Hospitalist Physical - Constitutional Vitals: Temp Pulse Resp BP Pulse Ox 97.9 F 64 19 109/71 97 11/14/20 04:47 11/14/20 04:47 11/14/20 04:47 11/14/20 04:47 11/14/20 04:47 General appearance: Present: no acute distress, well-nourished - EENT Eyes: Present: PERRL, EOM intact ENT: hearing intact, clear oral mucosa, dentition normal - Neck Neck: Present: supple, normal ROM - Respiratory Respiratory effort: normal Respiratory: bilateral: CTA - Cardiovascular Rhythm: regular Heart Sounds: Present: S1 & S2. Absent: gallop, rub - Extremities Extremities: no ischemia, No edema, Full ROM - Abdominal General gastrointestinal: soft, non-tender, non-distended, normal bowel sounds - Integumentary Integumentary: Present: clear, warm, dry - Neurologic Neurologic: CNII-XII intact, moves all extremities HEART Score - HEART Score Troponin: Troponin T < 0.010 ng/mL (0.00-0.029) 11/12/20 14:16 Results - Labs CBC & Chem 7: 11/12/20 14:16 11/12/20 14:16 Labs: Laboratory Last Values WBC 5.0 K/mm3 (4.5-11.0) 11/12/20 14:16 RBC 4.24 M/mm3 (3.65-5.03) 11/12/20 14:16 Hgb 14.4 gm/dl (11.8-15.2) 11/12/20 14:16 Hct 41.3 % (35.5-45.6) 11/12/20 14:16 MCV 97 fl (84-94) H 11/12/20 14:16 MCH 34 pg (28-32) H 11/12/20 14:16 MCHC 35 % (32-34) H 11/12/20 14:16 RDW 12.6 % (13.2-15.2) L 11/12/20 14:16 Plt Count 159 K/mm3 (140-440) 11/12/20 14:16 Lymph % (Auto) 44.9 % (13.4-35.0) H 11/12/20 14:16 Drew % (Auto) 8.8 % (0.0-7.3) H 11/12/20 14:16 Eos % (Auto) 2.2 % (0.0-4.3) 11/12/20 14:16 Baso % (Auto) 0.6 % (0.0-1.8) 11/12/20 14:16 Lymph # (Auto) 2.3 K/mm3 (1.2-5.4) 11/12/20 14:16 Drew # (Auto) 0.4 K/mm3 (0.0-0.8) 11/12/20 14:16 Eos # (Auto) 0.1 K/mm3 (0.0-0.4) 11/12/20 14:16 Baso # (Auto) 0.0 K/mm3 (0.0-0.1) 11/12/20 14:16 Seg Neutrophils % 43.5 % (40.0-70.0) 11/12/20 14:16 Seg Neutrophils # 2.2 K/mm3 (1.8-7.7) 11/12/20 14:16 PT 13.9 Sec. (12.2-14.9) 11/12/20 14:16 INR 1.08 (0.87-1.13) 11/12/20 14:16 APTT 29.3 Sec. (24.2-36.6) 11/12/20 14:16 Sodium 136 mmol/L (137-145) L 11/12/20 14:16 Potassium 3.7 mmol/L (3.6-5.0) 11/12/20 14:16 Chloride 100.5 mmol/L (98-107) 11/12/20 14:16 Carbon Dioxide 29 mmol/L (22-30) 11/12/20 14:16 Anion Gap 10 mmol/L 11/12/20 14:16 BUN 12 mg/dL (9-20) 11/12/20 14:16 Creatinine 1.2 mg/dL (0.8-1.3) 11/12/20 14:16 Estimated GFR > 60 ml/min 11/12/20 14:16 BUN/Creatinine Ratio 10 % 11/12/20 14:16 Glucose 92 mg/dL (75-100) 11/12/20 14:16 Calcium 9.0 mg/dL (8.4-10.2) 11/12/20 14:16 Magnesium 1.90 mg/dL (1.7-2.3) 11/12/20 14:16 Total Bilirubin 0.40 mg/dL (0.1-1.2) 11/12/20 14:16 AST 20 units/L (5-40) 11/12/20 14:16 ALT 27 units/L (7-56) 11/12/20 14:16 Alkaline Phosphatase 50 units/L (35-129) 11/12/20 14:16 Total Creatine Kinase 260 units/L (55-170) H 11/12/20 14:16 Troponin T < 0.010 ng/mL (0.00-0.029) 11/12/20 14:16 Total Protein 7.6 g/dL (6.3-8.2) 11/12/20 14:16 Albumin 4.0 g/dL (3.9-5) 11/12/20 14:16 Albumin/Globulin Ratio 1.1 % 11/12/20 14:16 Triglycerides 93 mg/dL (2-149) 11/13/20 07:21 Cholesterol 161 mg/dL (50-199) 11/13/20 07:21 LDL Cholesterol Direct 115 mg/dL (50-130) 11/13/20 07:21 HDL Cholesterol 33 mg/dL (40-59) L 11/13/20 07:21 Cholesterol/HDL Ratio 4.87 % 11/13/20 07:21 TSH 0.893 mlU/mL (0.270-4.200) 11/12/20 14:16 Laguerre/IV: Voiding Method Toilet Active Medications - Current Medications Current Medications: Generic Name Dose Route Start Last Admin Trade Name Freq PRN Reason Stop Dose Admin Acetaminophen 650 mg 11/12/20 16:32 Acetaminophen 325 Mg Tab PO Q4H PRN Pain, Mild (1-3) Aspirin 325 mg 11/13/20 10:00 11/13/20 21:44 Aspirin 325 Mg Tab PO 325 mg QDAY ALFREDO Administration Atorvastatin Calcium 40 mg 11/12/20 22:00 11/13/20 21:44 Atorvastatin 40 Mg Tab PO 40 mg QHS ALFREDO Administration Bisacodyl 10 mg 11/12/20 16:32 Bisacodyl 10 Mg Rect Supp [place] QDAY PRN Constipation Magnesium Hydroxide 30 ml 11/12/20 16:32 Magnesium Hydroxide (Mom) Oral Liqd Udc PO Q4H PRN Constipation Metoclopramide HCl 10 mg 11/12/20 16:32 Metoclopramide 10 Mg Tab PO Q6H PRN Nausea And Vomiting Ondansetron HCl 4 mg 11/12/20 16:32 Ondansetron 4 Mg/2 Ml Inj IV Q8H PRN Nausea And Vomiting Promethazine HCl 25 mg 11/12/20 16:32 Promethazine 25 Mg Rect Supp [place] Q6H PRN Nausea And Vomiting Sodium Chloride 10 ml 11/12/20 16:32 Sodium Chloride 0.9% 10 Ml Flush Syringe IV PRN PRN LINE FLUSH
[2020-11-14] MEDS: ASPIRIN 325 MG TAB PO SCH (11:00)
--- NOTE | 2020-11-14 11:01 | Magnetic Resonance Report ---
MR brain wo/w con INDICATION / CLINICAL INFORMATION: 55 years Male; MAIN. TECHNIQUE: Multiplanar, multisequence MR images of the brain were obtained. COMPARISON: The study is compared to the previous CT of 11/12/2020. FINDINGS: BRAIN / INTRACRANIAL CONTENTS: The motion degrades the image quality despite using a fast acquisition sequences. However, there are a few scattered small hyperintense foci involving cerebral white matte r on the FLAIR sequence most consistent with microvascular angiopathy. The diffusion imaging reveals no clear evidence of acute infarction. The ventricular system is within normal limits in size and configuration. No extra-axial fluid collec tions or significant mass effect is identified. No intracranial enhancing lesions are appreciated. No edema is seen at within the region of the right basal ganglia. A small focus of increased attenuatio n seen within this region on the earlier CT of the neck would be compatible with incidental calcifica tion. CRANIOCERVICAL JUNCTION: No significant abnormality. VASCULAR FLOW-VOIDS: No significant abnormality. ORBITS: No significant abnormality of visualized orbits. SINUSES / MASTOIDS: No significant abnormality in the visualized paranasal sinuses or mastoid air marcia ls. ADDITIONAL FINDINGS: None. IMPRESSION: 1. There is mild microvascular angiopathy as described without evidence of recent infarction or acute intracranial process. Signer Name: Nael Ko MD Signed: 11/14/2020 10:56 AM Workstation Name: [email or web address][id number]
--- NOTE | 2020-11-15 07:50 | Discharge Summary ---
Providers - Providers Date of Admission: 11/12/20 16:32 Date of discharge: 11/15/20 Attending physician: RUTH STEEN 11/12/20 16:32 Occupational Therapy Evaluate and Treat [CONS] Routine Comment: Reason For Exam: Neuro deficits Physical Therapy Evaluation and Treat [CONS] Routine Comment: Reason For Exam: Neuro deficits 11/13/20 07:54 Consult to Physician [CONS] Routine Comment: Consulting Provider: JENNIFER MAXWELL Physician Instructions: Reason For Exam: CVA Primary care physician: [employer] Hospitalization Reason for admission: Sudden facial numbness and inability to walk Condition: Stable Pertinent studies: CT head without contrast no evidence of acute abnormality 3 mm hyperdensity in the right basal ganglia next MRI brain; mild microvascular angiopathy without evidence of recent infarction or acute intracranial process CTA head no significant abnormality CTA neck; no significant abnormality echocardiogram; EF 45 to 50% no shunt noted carotid Doppler; no hemodynamically significant stenosis less than 50% bilateral Hospital course: 55-year-old male patient with significant past medical history of hypertension diet-controlled diabetes mellitus HIV undetectable viral load was admitted through emergency room with history of sudden facial numbness and inability to walk and generalized weakness while at work. Patient had difficulty ambulating Code stroke was called, patient was not a candidate for TPA, patient received aspirin and statin and had extensive neuro work-up as mentioned below. Patient's blood pressures blood sugars electrolytes closely monitored medications optimized. Patient received physical therapy occupational therapy. Acute CVA ruled out, possible TIA. Patient was evaluated by neurologist, agree with the work-up and treatment plan. Today patient is comfortable no new complaints vital signs stable, ambulatory and tolerating oral nutrition Cleared by consultants for discharge and follow-up per schedule Patient is hemodynamically and clinically stable at discharge. Discharge diagnosis: --Acute TIA --Acute CVA ruled out; Neuro work-up is negative --Hypertension; moderate control --Dyslipidemia; low-cholesterol diet and statin --History of HIV; stable will follow with private ID/health department as needed Disposition: DC-01 TO HOME OR SELFCARE Final Discharge Diagnosis (Prints w/discharge instructions): TIA. Acute CVA ruled out. Dyslipidemia. History of HIV Time spent for discharge: 35 min Core Measure Documentation - Palliative Care Palliative Care/ Comfort Measures: Not Applicable - Core Measures Any of the following diagnoses?: none Exam - Constitutional Vitals: Temp Pulse Resp BP Pulse Ox 98.5 F 68 18 121/72 96 11/15/20 03:59 11/15/20 03:59 11/15/20 03:59 11/15/20 03:59 11/15/20 03:59 General appearance: Present: no acute distress, well-nourished - EENT Eyes: Present: PERRL, EOM intact - Neck Neck: Present: supple, normal ROM - Respiratory Respiratory effort: normal Respiratory: bilateral: diminished, negative: rales, rhonchi, wheezing - Cardiovascular Rhythm: regular Heart Sounds: Present: S1 & S2 - Extremities Extremities: no ischemia, No edema - Abdominal General gastrointestinal: Present: soft, non-tender, non-distended, normal bowel sounds - Integumentary Integumentary: Present: clear, warm - Musculoskeletal Musculoskeletal: strength equal bilaterally - Psychiatric Psychiatric: appropriate mood/affect, cooperative - Neurologic Neurologic: CNII-XII intact, moves all extremities Plan Activity: advance as tolerated, fall precautions Diet: low cholesterol Additional Instructions: Advised to see private neurologist for further evaluation and management of your neuro symptoms. If you have worsening symptoms contact MD or go to emergency room. Advised 3 days work excuse on 11/16, 11/17 and 11/18/2020. Check with primary care physician if you need more days of work excuse Follow up with: PRIMARY TOLU, [Primary Care Provider] - 7 Days JUAN A RUBIN MD [Staff Physician] - 7 Days Prescriptions: Aspirin [Adult Aspirin] 81 mg PO DAILY #30 tablet. AtorvaSTATin [Lipitor] 40 mg PO QHS #30 tablet
[2020-11-15] MEDS: ASPIRIN 325 MG TAB PO SCH ×2 (09:38→11:04)
[2020-11-15 13:38] VITALS: BP 125/83
--- NOTE | 2020-11-15 17:43 | Electrocardiograph Report ---
[facility] Test Date: 2020-11-12 Test Time: 14:05:37 Pat Name: SARAHI HSIEH Department: Room: A376 1 Gender: M Building Surveyor: MITCHELL : 1965 Requested By: ALBA NOYOLA Order Number: [id number] Reading MD: Areli Garibay Measurements Intervals [place] Rate: 69 P: 70 UT: 152 QRS: -16 QRSD: 124 T: -8 QT: 401 QTc: 431 Interpretive Statements Sinus rhythm Right bundle branch block No previous ECG available for comparison Electronically Signed On 11-15-2020 17:42:25 EDT by Areli Garibay
== END 2020-11-15 17:06 | disposition home or self-care (01) ==
LOC: ED 13:04 → 3A 16:32
PROVIDERS: ADMIT Internal Medicine; ATTEND Internal Medicine
DX: I63.9 Cerebral infarction, unspecified (principal); I10 Essential (primary) hypertension; R29.700 NIHSS score 0; G45.9 Transient cerebral ischemic attack, unspecified; E78.5 Hyperlipidemia, unspecified; Z21 Asymptomatic human immunodeficiency virus [HIV] infection status; Z79.899 Other long term (current) drug therapy; Z98.890 Other specified postprocedural states; Z79.82 Long term (current) use of aspirin
CPT/HCPCS: 36415; 70450; 70496; 70498; 70553; 80053; 80061; 82550; 83735; 84443; 84484; 85025; 85610; 85730; 93005; 93306; 93880; 97161; 99285; A9270; A9575; G0378; Q9967